=== PATIENT | male | born 1950 | race Caucasian/White ===

== ENCOUNTER → 2018-11-15 | Day surgery (SDC) | payer BC ==
[2018-11-11 12:32] LABS: BASOPHILS % 0.5 % (0.0-1.0); EOSINOPHILS # (AUTO) 0.2 (0.0-0.4); EOSINOPHILS % 2.9 % (0.0-6.0); HEMATOCRIT 44.8 % (38.2-49.6); HEMOGLOBIN 15.8 g/dL (14.0-18.0); LYMPHOCYTES # (AUTO) 1.3 (1.0-3.2); LYMPHOCYTES % 16.3 % (18.0-39.1); MEAN CORPUSCULAR HEMOGLOBIN 30.9 pg (28-32); MEAN CORPUSCULAR HGB CONC 35.3 g/dL (31-35); MEAN CORPUSCULAR VOLUME 87.7 fL (81-99); MONOCYTES # (AUTO) 0.8 (0.2-0.8); MONOCYTES % 10.2 % (4.4-11.3); NEUTROPHILS # (AUTO) 5.6 (2.1-6.9); NEUTROPHILS % 69.4 % (38.7-80.0); PLATELET COUNT 181 x10e3/uL (140-360); RED BLOOD COUNT 5.11 x10e6/uL (4.3-5.7); RED CELL DISTRIBUTION WIDTH 12.5 % (11.7-14.4)
--- NOTE | 2018-11-11 13:24 | Diagnostic Imaging Report ---
Frontal and lateral views of the chest. HISTORY: PRE ADMIT right hand surgery, right carpal tunnel release COMPARISON: None available. DISCUSSION: Lungs: No evidence of a consolidative pneumonia or pulmonary alveolar edema. Pleura: No pleural effusion or pneumothorax. Heart and mediastinum: The cardiomediastinal silhouette appears unremarkable. Bones: No acute osseous lesion. IMPRESSION: No acute radiographic abnormality. Signed by: Dr. Grady Watson D.O., M.M.M. on 11/11/2018 1:21 PM
[~2018-11-15] MED LIST: ACEBUTOLOL HCL200 MG PO; CALCIUM PO; CELEBREX100 MG PO; CLINDAMYCIN 600MG / 50ML 50 ML IV ONE; CRAN-MAX500 MG PO; DEXAMETHASONE SOD PHOS INJ 4 MG/ML VIAL ONE; ESTER-C 1,0001 EACH PO; FENTANYL CITRATE/PF 100MCG/2 ML INJ ONE; FISH OIL 1,2001 EACH PO; GLUCOSAMINE 1,1 EACH PO; LIDOCAINE HCL 2% LOCAL 20 ML VIAL ONE; LIDOCAINE HCL 2% LOCAL INJ 5 ML SDV VIAL INJ ONE; METHYLPREDNISOLONE ACETATE 80 MG/ML VIAL ONE; ONDANSETRON HCL INJ 2 MG/ML VIAL ONE; PRAVASTATIN SOD40 MG PO; PROPOFOL IV EMULSION 10 MG/ML 20 ML VIAL ONE; SEVOFLURANE INHAL SOLN 250 ML PEN BTL ONE; VIT C PO; VIT E PO
--- OUTSIDE RECORDS SUMMARY | 2018-11-15 08:27 | XMS REPORT | Continuity of Care Document ---
Author Author [facility] Address Unknown Phone Unavailable Problems Problem Status Onset Date Classification Date Reported Comments Source 789.00 - ABDMNAL PAIN UN Active 11/22/2013 OPID Jude Medications Medication Details Route Status Patient Instructions Ordering Provider Order Date Source Allergies, Adverse Reactions, Alerts Substance Category Reaction Severity Reaction type Status Date Reported Comments Source Immunizations Immunization Date Given Site Status Last Updated Comments Source Results Order Name Results Value Reference Range Date Interpretation Comments Source Pelvis US Pelvis US Abdomen and pelvis ultrasound. INDICATION: Right flank pain. Technologist notes indicate that the patient is status post remote ureteral implantation surgery. 63-year-old male. TECHNIQUE: Grayscale and Doppler sonogram of the abdomen and pelvis using transabdominal technique. FINDINGS: Midline is mildly limited due to bowel gas, but unremarkable pancreas, abdominal aorta, and IVC. 13.8 cm liver demonstrates normal parenchymal echogenicity. 0.7 cm main portal vein demonstrates normal directional flow. 0.3 cm common bile duct is within normal limits. Negative for cholelithiasis, gallbladder wall thickening, and sonographic Cotton sign. 8.4 cm right kidney demonstrates mildly increased parenchymal echogenicity but no hydronephrosis. There is a 1.2 x 1.1 x 1 cm upper pole simple cyst. 10.6 cm left kidney demonstrates normal parenchymal echogenicity, cortical thickness, and absence of hydronephrosis; a few persistent lobulations. 9.7 cm spleen is not enlarged. Unremarkable urinary bladder. Bilateral ureteral jets are identified. Prostate gland is not enlarged and measures 38 mL and appears to have central calcification. Urinary bladder volume is 298 mL prevoid and 30.1 mL post void. IMPRESSION: Mildly atrophic right kidney with increased parenchymal echogenicity. Correlate quickly for medical renal disease or unilateral renal process, such as renal arterial stenosis. 1.2 cm simple upper pole right renal cyst. Negative for cholelithiasis. Unremarkable pelvic ultrasound. 11/23/2013 - - Read by: Kenny Ribera Dictated Date/time: 11/23/13 13:04 Electronically Signed by: Kenny Ribera MD 11/23/13 13:10 FINAL REPORT [facility] Abdomen complete US Abdomen complete US Abdomen and pelvis ultrasound. INDICATION: Right flank pain. Technologist notes indicate that the patient is status post remote ureteral implantation surgery. 63-year-old male. TECHNIQUE: Grayscale and Doppler sonogram of the abdomen and pelvis using transabdominal technique. FINDINGS: Midline is mildly limited due to bowel gas, but unremarkable pancreas, abdominal aorta, and IVC. 13.8 cm liver demonstrates normal parenchymal echogenicity. 0.7 cm main portal vein demonstrates normal directional flow. 0.3 cm common bile duct is within normal limits. Negative for cholelithiasis, gallbladder wall thickening, and sonographic Cotton sign. 8.4 cm right kidney demonstrates mildly increased parenchymal echogenicity but no hydronephrosis. There is a 1.2 x 1.1 x 1 cm upper pole simple cyst. 10.6 cm left kidney demonstrates normal parenchymal echogenicity, cortical thickness, and absence of hydronephrosis; a few persistent lobulations. 9.7 cm spleen is not enlarged. Unremarkable urinary bladder. Bilateral ureteral jets are identified. Prostate gland is not enlarged and measures 38 mL and appears to have central calcification. Urinary bladder volume is 298 mL prevoid and 30.1 mL post void. IMPRESSION: Mildly atrophic right kidney with increased parenchymal echogenicity. Correlate quickly for medical renal disease or unilateral renal process, such as renal arterial stenosis. 1.2 cm simple upper pole right renal cyst. Negative for cholelithiasis. Unremarkable pelvic ultrasound. 11/23/2013 - - Read by: Kenny Ribera Dictated Date/time: 11/23/13 13:04 Electronically Signed by: Kenny Ribera MD 11/23/13 13:10 FINAL REPORT [facility]Y Smith Vital Signs Vital Sign Value Date Comments Source Encounters Location Location Details Encounter Type Encounter Number Reason For Visit Attending Provider ADM Date DC Date Status Source OD [id number] 789.00 - ABDMNAL PAIN UN FIGUEROA HARO 11/23/2013 Active GERRY Smith Procedures Procedure Code Date Perfomer Comments Source
--- OUTSIDE RECORDS SUMMARY | 2018-11-15 08:27 | XMS REPORT ---
Author Author [facility] Address Unknown Phone Unavailable Care Team Providers Care Ward Helper Name Role Phone FARAZ GUILLERMO Unavailable Unavailable Problems This patient has no known problems. Allergies, Adverse Reactions, Alerts This patient has no known allergies or adverse reactions. Medications This patient has no known medications. Results Test Description Test Time Test Comments Text Results Atomic Results Result Comments CHEST 2 VIEWS 2018-11-11 13:20:00 [facility] [address] [address] Patient Name: HALIE STOVER MR #: [id number] : 1950 Age/Sex: 68/M Req #: [id number] Adm Physician: Ordered by: FARAZ GUILLERMO MD Report #: [id number] Location: OR Room/Bed: Procedure: [id number] DX/CHEST 2 VIEWS Exam Date: 11/11/18 Exam Time: 1230 REPORT STATUS: Signed Frontal and lateral views of the chest. HISTORY: PRE ADMIT right hand surgery, right carpal tunnel release COMPARISON: None available. DISCUSSION: Lungs: No evidence of a consolidative pneumonia or pulmonary alveolar edema. Pleura: No pleural effusion or pneumothorax. Heart and mediastinum: The cardiomediastinal silhouette appears unremarkable. Bones: No acute osseous lesion. IMPRESSION: No acute radiographic abnormality. Signed by: Dr. Jose Watson D.O., M.M.M. on 11/11/2018 1:21 PM Dictated By: JOSE WATSON DO 1321 Transcribed By: Tori WHITE on 11/11/18 1321 COPY TO: FARAZ GUILLERMO MD
[2018-11-15 13:00] VITALS: BP 129/73
--- NOTE | 2018-11-15 14:08 | Operative Report ---
DATE OF PROCEDURE: November 15, 2018 TOP CARRIER: Attila Ac PA-C The patient was brought to the operating room for induction of anesthesia. Throughout this case, my PA's assistance was necessary for retraction of soft tissue and positioning of the extremity. This allows for efficient and technically successful execution of the operation and is considered medically necessary. PREOPERATIVE DIAGNOSIS: Right carpal tunnel syndrome and right 3rd trigger finger. POSTOPERATIVE DIAGNOSIS: Right carpal tunnel syndrome and right 3rd trigger finger. PROCEDURE: Right endoscopic carpal tunnel release and right 3rd trigger finger injection. INDICATIONS: The patient is a 68-year-old gentleman who has clinic signs and symptoms consistent with right carpal tunnel syndrome and right 3rd trigger finger. He previously had a trigger finger injection that helped. He would like to have this repeated while he is under anesthetic. He has failed conservative management for his carpal tunnel syndrome. He would like to proceed with definitive intervention. The risks and benefits of a carpal tunnel release were explained. He states he understands and wishes to proceed. DESCRIPTION OF PROCEDURE: The patient was brought to the operating room and placed under general anesthetic. His right upper extremity was prepped and draped in a sterile manner. A preoperative time out was performed. The extremity was exsanguinated and a proximal tourniquet was inflated to 250 mmHg. A transverse incision was made in the flexion crease of the right wrist. The palmaris longus was retracted to the radial side of the wound. The flexor retinaculum was elevated and incised with a pair of tenotomy scissors. An elevator was used to tease the tenosynovium off of the undersurface of the transverse carpal ligament. Dilators were placed and the hook of the hamate was palpated. The Micro-Aire endoscope was placed into the carpal tunnel. The undersurface of the transverse carpal ligament was cleanly visualized without evidence of soft tissue interposition. The knife was deployed and the ligament was cut from distal to proximal. A full-thickness cut was noted. The proximal retinaculum was incised under direct visualization with a pair of tenotomies. Two 4-0 Prolene stitches were used to close the skin. An injection was then performed into the right 3rd flexor tendon sheath. This was a combination of 1 mL of Solu-Medrol and 2 mL of 1% lidocaine. A sterile bandage was applied. The patient was extubated and transported to the recovery room in stable condition. There was no blood loss. All needle and sponge counts were correct. Job#: [id number] DAVIS
== END | disposition home or self-care (01) ==
LOC: OR 08:10
PROVIDERS: ATTEND Specialist
DX: G56.01 Carpal tunnel syndrome, right upper limb (principal); M65.331 Trigger finger, right middle finger; G47.33 Obstructive sleep apnea (adult) (pediatric); I10 Essential (primary) hypertension; E78.5 Hyperlipidemia, unspecified; I34.1 Nonrheumatic mitral (valve) prolapse; M54.9 Dorsalgia, unspecified; Z88.0 Allergy status to penicillin; Z01.812 Encounter for preprocedural laboratory examination; Z01.818 Encounter for other preprocedural examination
CPT/HCPCS: 20550; 29848; 36415; 71046; 85025; J1040; J1100; J2001 ×2; J2405; J2704

== ENCOUNTER → 2019-09-04 | Outpatient (CLI) | payer BC ==
[~2019-09-04] MED LIST changes: -CLINDAMYCIN 600MG / 50ML 50 ML IV ONE; -DEXAMETHASONE SOD PHOS INJ 4 MG/ML VIAL ONE; -FENTANYL CITRATE/PF 100MCG/2 ML INJ ONE; +FUROSEMIDE INJ 10 MG/ML 4 ML VIAL ONE; -LIDOCAINE HCL 2% LOCAL 20 ML VIAL ONE; -LIDOCAINE HCL 2% LOCAL INJ 5 ML SDV VIAL INJ ONE; -METHYLPREDNISOLONE ACETATE 80 MG/ML VIAL ONE; -ONDANSETRON HCL INJ 2 MG/ML VIAL ONE; -PROPOFOL IV EMULSION 10 MG/ML 20 ML VIAL ONE; -SEVOFLURANE INHAL SOLN 250 ML PEN BTL ONE
--- NOTE | 2019-09-04 14:29 | Diagnostic Imaging Report ---
Renal Scan with Lasix Washout Clinical information: Atrophic kidneys; recurrent UTI's. Technique: Following intravenous administration of 10 mCi of Tc-99m MAG3, dynamic images of the kidneys in the posterior projection were obtained through 40 minutes. Lasix 40 mg was administered intravenously at 10 minutes post injection of the tracer. Report: Left kidney: Perfusion of the left kidney is prompt. The kidney is reduced in size overall and has a distorted reniform shape with irregular contours and a wedge-shaped defect in the mid aspect of the kidney. Extraction of tracer from the blood pool is mildly decreased. Clearance of tracer from the renal parenchyma begins promptly but is not complete by the end of the study. The pelvicalyceal system is not dilated. Physiologic pooling of tracer is seen within the pelvicalyceal system. Drainage of tracer from the pelvicalyceal system is adequate prior to administration of Lasix. Some stasis of tracer is seen at multiple levels within the left ureter, however, the left ureter does not appear dilated and tracer clears by the end of the study. Right kidney: Perfusion to the right kidney is prompt. The kidney is reduced in size overall and is significantly smaller than the left kidney. It has a non-reniform shape and is confined to the upper pole region of the right renal bed. Extraction of tracer from the blood pool by the remaining renal parenchyma is mildly decreased. Clearance of tracer from the renal parenchyma begins promptly but is not complete by the end of the study. The pelvicalyceal system is not dilated. Physiologic pooling of tracer is seen within the pelvicalyceal system. Drainage of tracer from the pelvicalyceal system is adequate prior to administration of Lasix. Some stasis of tracer is seen within the right ureter, however, the right ureter does not appear dilated and tracer clears by the end of the study. Differential renal function: The left kidney contributes 68% of total renal function and the right kidney contributes 32% (normal 43-57%). Impression: 1. Scan evidence of medical renal disease as well as scarring in the left kidney. No hydronephrosis is present. No physiologically significant obstruction of the renal collecting system is present. 2. Scan evidence of medical renal disease as well as scarring in the right kidney. The greater loss of renal parenchyma in the right kidney compared to the left kidney accounts for the decreased differential function of 32%. No hydronephrosis or physiologically significant obstruction of the renal collecting system is present. Signed by: Dr. Morelia Garza M.D. on 09/04/2019 2:26 PM
== END ==
LOC: NM 08:03
PROVIDERS: ATTEND Urology
DX: N26.1 Atrophy of kidney (terminal) (principal)
CPT/HCPCS: 78708; A9562; J1940

== ENCOUNTER → 2022-03-23 | Day surgery (SDC) | payer MEDICARE, OTHER ==
[2022-03-20 10:54] LABS: BASOPHILS % 0.2 % (0.0-1.0); EOSINOPHILS # (AUTO) 0.2 (0.0-0.4); EOSINOPHILS % 3.2 % (0.0-6.0); HEMATOCRIT 44.2 % (38.2-49.6); HEMOGLOBIN 15.2 g/dL (14.0-18.0); LYMPHOCYTES # (AUTO) 1.1 (1.0-3.2); LYMPHOCYTES % 18.5 % (18.0-39.1); MEAN CORPUSCULAR HEMOGLOBIN 30.4 pg (28-32); MEAN CORPUSCULAR HGB CONC 34.4 g/dL (31-35); MEAN CORPUSCULAR VOLUME 88.4 fL (81-99); MONOCYTES # (AUTO) 0.6 (0.2-0.8); NEUTROPHILS # (AUTO) 4.1 (2.1-6.9); NEUTROPHILS % 67.9 % (38.7-80.0); PLATELET COUNT 226 x10e3/uL (140-360); RED CELL DISTRIBUTION WIDTH 12.5 % (11.7-14.4)
[~2022-03-23] MED LIST changes: +ACETAMINOPHEN 1000 MG/100 ML IV ONE; +DEXAMETHASONE SOD PHOS INJ 4 MG/ML SDV ONE; +EPHEDRINE SULFATE INJ 50 MG/ML VIAL ONE; +FENTANYL CITRATE/PF 100MCG/2 ML INJ ONE; -FUROSEMIDE INJ 10 MG/ML 4 ML VIAL ONE; +GLYCOPYRROLATE INJ 0.2 MG/ML VIAL ONE; +KETOROLAC TROMETHAMINE 30 MG/ML VIAL ONE; +LIDOCAINE HCL 2% LOCAL INJ 5 ML SDV VIAL INJ ONE; +MIDAZOLAM HCL 2 MG/2 ML VIAL ONE; +ONDANSETRON HCL INJ 2MG/ML 2ML 2 MG/ML VIAL ONE; +POVIDONE IODINE 0.05% 0.05 % ML PO ONE; +PROPOFOL IV EMULSION 10 MG/ML 20 ML VIAL ONE; +SEVOFLURANE INHAL SOLN 250 ML PEN BTL ONE; +VITAMIN D325 MCG PO
[2022-03-23 10:05] VITALS: BP 117/62
== END | disposition home or self-care (01) ==
LOC: OR 08:00
PROVIDERS: ATTEND Specialist
DX: G56.02 Carpal tunnel syndrome, left upper limb (principal); M54.9 Dorsalgia, unspecified; I10 Essential (primary) hypertension; I34.1 Nonrheumatic mitral (valve) prolapse; R00.1 Bradycardia, unspecified; Z88.0 Allergy status to penicillin; Z79.899 Other long term (current) drug therapy
CPT/HCPCS: 29848; 36415; 71046; 85025; 93005; J0131; J0690; J1100; J1885; J2001; J2405; J2704; U0002; J2250; J3010

== ENCOUNTER → 2022-06-19 | Outpatient (CLI) | payer MEDICARE, OTHER ==
[~2022-06-19] MED LIST changes: -ACETAMINOPHEN 1000 MG/100 ML IV ONE; -DEXAMETHASONE SOD PHOS INJ 4 MG/ML SDV ONE; +DIATRIZOATE MEGL/DIATRIZOA SOD 30 ML BTL PO ONE; -EPHEDRINE SULFATE INJ 50 MG/ML VIAL ONE; -FENTANYL CITRATE/PF 100MCG/2 ML INJ ONE; -GLYCOPYRROLATE INJ 0.2 MG/ML VIAL ONE; -KETOROLAC TROMETHAMINE 30 MG/ML VIAL ONE; -LIDOCAINE HCL 2% LOCAL INJ 5 ML SDV VIAL INJ ONE; -MIDAZOLAM HCL 2 MG/2 ML VIAL ONE; -ONDANSETRON HCL INJ 2MG/ML 2ML 2 MG/ML VIAL ONE; -POVIDONE IODINE 0.05% 0.05 % ML PO ONE; -PROPOFOL IV EMULSION 10 MG/ML 20 ML VIAL ONE; -SEVOFLURANE INHAL SOLN 250 ML PEN BTL ONE
== END ==
LOC: CT 07:27
PROVIDERS: ATTEND Internal Medicine Cardiovascular Disease
DX: R10.9 Unspecified abdominal pain (principal); K40.90 Unilateral inguinal hernia, without obstruction or gangrene, not specified as recurrent; J90 Pleural effusion, not elsewhere classified; K57.90 Diverticulosis of intestine, part unspecified, without perforation or abscess without bleeding
CPT/HCPCS: 74176; Q9963

== ENCOUNTER 2023-08-31 08:40 | Emergency (ER) | payer MEDICARE, OTHER ==
[~2023-08-31] VITALS: Ht 177.8 cm; Wt 83.9 kg
[~2023-08-31 08:40] MED LIST changes: -DIATRIZOATE MEGL/DIATRIZOA SOD 30 ML BTL PO ONE
[2023-08-31 09:13] LABS: BASOPHILS # (AUTO) 0.1 (0.0-0.1); BASOPHILS % 0.2 % (0.0-1.0); EOSINOPHILS % 0.1 % (0.0-6.0); HEMATOCRIT 45.6 % (38.2-49.6); HEMOGLOBIN 16.9 g/dL (14.0-18.0); LYMPHOCYTES # (AUTO) 0.9 (1.0-3.2); LYMPHOCYTES % 3.6 % (18.0-39.1); MEAN CORPUSCULAR HEMOGLOBIN 30.8 pg (28-32); MEAN CORPUSCULAR HGB CONC 37.1 g/dL (31-35); MEAN CORPUSCULAR VOLUME 83.1 fL (81-99); MONOCYTES # (AUTO) 1.8 (0.2-0.8); MONOCYTES % 7.3 % (4.4-11.3); NEUTROPHILS # (AUTO) 21.1 (2.1-6.9); NEUTROPHILS % 87.3 % (38.7-80.0); PLATELET COUNT 242 x10e3/uL (140-360); RED BLOOD COUNT 5.49 x10e6/uL (4.3-5.7); RED CELL DISTRIBUTION WIDTH 12.1 % (11.7-14.4); WHITE BLOOD COUNT 24.12 x10e3/uL (4.8-10.8)
[2023-08-31] MEDS ORDERED: LACTATED RINGER'S 1,000 ML ONE (09:14)
[2023-08-31] MEDS ORDERED: Vancomycin IV 1 GM in SODIUM CHLORIDE 0.9% 250ML 250 ML IV ONE (09:15)
[2023-08-31] MEDS ORDERED: LACTATED RINGER'S 1,000 ML IV ONE (09:15)
[2023-08-31 09:43] LABS: ALBUMIN 3.6 g/dL (3.5-5.0); ALBUMIN/GLOBULIN RATIO 0.9 (0.8-2.0); ANION GAP 15.3 mmol/L (8-16); CALCIUM 9.4 mg/dL (8.4-10.2); CREATININE, SERUM 1.33 mg/dL (0.72-1.25); POTASSIUM 4.3 mmol/L (3.5-5.1)
[2023-08-31] MEDS ORDERED: IOPAMIDOL 370 MG/ML 100 ML INFUS..BTL INJ ONE (10:15)
[2023-08-31 10:26] LABS: INR 1.02; PARTIAL THROMBOPLASTIN TIME 24.7 seconds (23.8-35.5)
[2023-08-31 14:58] VITALS: BP 150/71; PULSE 61; RESP 16; TEMP 98.7; O2SAT 97
== END 2023-08-31 14:59 | disposition other institution (70) ==
LOC: ER 09:03
DX: T81.49XA Infection following a procedure, other surgical site, initial encounter (principal); L02.11 Cutaneous abscess of neck; R50.9 Fever, unspecified; I10 Essential (primary) hypertension; E78.5 Hyperlipidemia, unspecified; M54.2 Cervicalgia; G89.29 Other chronic pain; Z20.822 Contact with and (suspected) exposure to COVID-19
CPT/HCPCS: 0223U; 36415; 70491; 80053; 82550; 83605; 84484; 85025; 85610; 85730; 87040; 99284; J0692; J3370; J7050; J7121; Q9967

== ENCOUNTER 2025-05-16 07:49 | Emergency (ER) | payer MEDICARE, OTHER ==
[~2025-05-16] VITALS: Ht 177.8 cm; Wt 86.2 kg
[~2025-05-16 07:49] MED LIST changes: +BACTRIM DS TAB1 EACH PO; +ULTRAM 50MG50 MG PO
[2025-05-16] MEDS: SODIUM CHLORIDE 0.9% 1000ML 1,000 ML IV STA (08:33)
[2025-05-16] MEDS: KETOROLAC TROMETHAMINE 30 MG/ML VIAL IV STA (08:34)
[2025-05-16 08:50] LABS: BASOPHILS % 0.1 % (0.0-1.0); EOSINOPHILS % 0.1 % (0.0-6.0); LYMPHOCYTES % 4.5 % (18.0-39.1); MONOCYTES % 8.8 % (4.4-11.3); NEUTROPHILS % 86.1 % (38.7-80.0); RED CELL DISTRIBUTION WIDTH 13.2 % (11.7-14.4)
[2025-05-16 09:23] LABS: EST GLOMERULAR FILTRATION RATE 59.0 ML/MIN (>=60)
[2025-05-16] MEDS ORDERED: IOPAMIDOL 370 MG/ML 100 ML INFUS..BTL INJ ONE (09:33)
[2025-05-16 09:41] LABS: LEUKOCYTE ESTERASE ,URINE MODERATE (NEGATIVE); PROTEIN,URINE DIPSTICK 1+ (NEGATIVE)
[2025-05-16 09:42] LABS: URINE UROBILINOGEN 0.2 mg/dL (0.2 - 1)
[2025-05-16 09:52] LABS: EPITHELIAL CELLS,URINE MODERATE /LPF; WBC,URINE (MAN) >50 /HPF (0-5)
[2025-05-16] MEDS ORDERED: MACROBID 100 M100 MG PO (10:23)
[2025-05-16] MEDS ORDERED: ACETAMINOPHEN500 MG PO (10:25)
[2025-05-16 11:04] VITALS: PULSE 68; RESP 16; TEMP 98.7; O2SAT 98
== END 2025-05-16 11:39 | disposition home or self-care (01) ==
LOC: ER 08:17
DX: N39.0 Urinary tract infection, site not specified (principal); I10 Essential (primary) hypertension; E78.5 Hyperlipidemia, unspecified; Z87.440 Personal history of urinary (tract) infections
CPT/HCPCS: 36415; 74177; 80053; 81001; 85025; 99284; J0696; J1885; J7030; Q9967